=== PATIENT | male | born 1975 | race Caucasian/White ===

== ENCOUNTER 2020-02-12 17:01 | Outpatient (CLI) | payer OTHER, SELFPAY ==
--- NOTE | 2020-02-12 17:09 | XRR_ITS ---
PROCEDURE INFORMATION: Exam: XR Left Knee Exam date and time: 02/12/2020 5:25 PM Age: 44 years old Clinical indication: Pain; Knee; Left; Additional info: Left knee pain TECHNIQUE: Imaging protocol: XR Left knee. Views: 3 views. Total images: 3 COMPARISON: No relevant prior studies available. FINDINGS: Bones/joints: Small joint effusion. Evidence of early primary osteoarthritis with mild medial joint space height loss. No visible fracture, subluxation, or dislocation. Soft tissues: Normal. XR/XR knee LT 3V* [id number] IMPRESSION: 1. Mild primary osteoarthritis. 2. Small joint effusion.
== END 2020-02-12 17:02 | disposition home or self-care (01) ==
LOC: RAD 17:03
PROVIDERS: Visit Provider Nurse Practitioner Family
DX: M17.12 Unilateral primary osteoarthritis, left knee (principal); M25.462 Effusion, left knee
CPT/HCPCS: 73562